=== PATIENT | male | born 1960 | race Caucasian/White ===

== ENCOUNTER 2019-02-11 01:18 | Outpatient (CLI) | payer BC, SELFPAY ==
[2019-02-11 08:21] LABS: ALT 25 U/L (12-78); AST 28 U/L (15-37); Albumin 3.4 g/dL (3.4-5.0); Alkaline Phosphatase 65 U/L (46-116); BUN 18 mg/dL (7-18); Bilirubin, Total 0.5 mg/dL (0.2-1.0); CREATININE 1.25 mg/dL (0.70-1.30); Calcium 8.2 mg/dL (8.5-10.1); Chloride 107 mmol/L (98-107); Estimated GFR 58.92 (mL/min/1.73m2); Glucose 90 mg/dL (70-100); Potassium 4.2 mmol/L (3.5-5.1); Sodium 141 mmol/L (136-145); Total Protein 7.5 g/dL (6.4-8.2)
[2019-02-11 08:32] LABS: Cholesterol 186 mg/dL (50-200); HDL Cholesterol 54 mg/dL (40-60); LDL CHOLESTEROL 121 mg/dL (<100); Triglyceride 29 mg/dL (30-150)
== END 2019-02-11 01:38 ==
PROVIDERS: PCP Family Medicine; Visit Provider Family Medicine
DX: Z13.220 Encounter for screening for lipoid disorders (principal)
CPT/HCPCS: 36415; 80053; 80061; 83721

== ENCOUNTER 2019-03-04 10:18 | Outpatient (CLI) | payer BC, SELFPAY ==
--- NOTE | 2019-03-04 09:11 | DI.RAD_ITS ---
SYMPTOMS/DIAGNOSIS: ROTATOR CUFF ARTHROPATHY OF LEFT SHOULDER, M12.812, INTERMITTENT PAIN FOR A LONG TIME, MOST WITH INTERNAL ROTATION LEFT SHOULDER: Five views were obtained. There is marked narrowing of the cartilaginous joint space of the glenohumeral joint with prominent inferior osteophytes of the humeral head and the glenoid. Superior osteophytes are also present. Mild subchondral sclerotic and cystic changes noted. Mild hypertrophic degenerative changes of the AC joint noted as well. CONCLUSION: Severe DJD, glenohumeral joint as described.
== END 2019-03-04 10:38 ==
PROVIDERS: PCP Family Medicine; Visit Provider Family Medicine
DX: M25.512 Pain in left shoulder (principal); M19.012 Primary osteoarthritis, left shoulder
CPT/HCPCS: 73030

== ENCOUNTER 2019-05-05 00:48 | Outpatient (CLI) | payer BC, SELFPAY ==
--- NOTE | 2019-05-05 07:07 | DI.RAD_ITS ---
SYMPTOM/DIAGNOSIS: LT SHOULDER INJECTION, ARTHRITIS, PRIMARY OA LT SHOULDER, M19.012 LEFT SHOULDER INJECTION: Fluoroscopy Time: 11.2 seconds Fluoroscopy was utilized by Dr. Burch during the performance of a left shoulder injection. Please refer to the procedure report for complete details.
--- NOTE | 2019-05-05 10:17 | W.PROCNOTE ---
Date of service: 05/05/19 Time of Service: 10:17 Procedure Note Date of procedure: 05/05/19 Procedure: Left Shoulder Injection Surgeon/Proceduralist/Physician: Deep Burch Procedure Diagnosis: Left Shoulder Osteoarthritis Procedure Indications: Geo has had persistent pain of the LEFT shoulder. Noninvasive measures have been tried. To serve as both diagnostic and therapeutic, an injection under fluoroscopy was recommended. I had discussed the risks of the procedure and the patient elected to proceed. Procedure Description: Geo was greeted in the flouroscopy room. The correct side was identified and the consent was reviewed with the patient and signed. The patient was then placed in the supine position on the fluoroscopy table. The LEFT shoulder was then prepped with Chloraprep. The anterior injection starting point was identiifed by bony landmarks and fluoroscopy. The skin and soft tissue in the tract of the injection was anesthetized with 1% Lidocaine. A spinal needle was then inserted deep into the shoulder joint at the level of the recess between the glenoid and superior humeral head. A small amount of Omnipaque solution was injected to confirm intraarticular placement. Once confirmed, the shoulder was injected with 4cc of 0.5% Bupivicaine and 80mg of Depo-Medrol. A bandaid was placed on the injection site. The patient tolerated the procedure well and noted improvement in pre-injection pain.
[2019-05-05] MEDS: Omnipaque 300 MG/ML 10 ML BTL IJ (10:51)
[2019-05-05] MEDS: Bupivacaine 0.5% Pres-Free 10 ML VIAL IJ (10:52)
[2019-05-05] MEDS: methylPREDNISolone ACETATE 80 MG/ML VIAL IM (10:52)
== END 2019-05-05 01:08 ==
PROVIDERS: PCP Family Medicine; Visit Provider Student in an Organized Health Care Education/Training Program
DX: M19.012 Primary osteoarthritis, left shoulder (principal); M25.512 Pain in left shoulder
CPT/HCPCS: 20610; 77002; J1040

== ENCOUNTER 2019-09-09 10:25 | Outpatient (REF) | payer BC, SELFPAY ==
[2019-09-09 18:43] LABS: Anion Gap 9.5 mmol/L (3-11); BUN 17 mg/dL (7-18); CO2 26.5 mmol/L (21.0-32.0); Calcium 8.5 mg/dL (8.5-10.1); Chloride 105 mmol/L (98-107); Estimated GFR 56.12 (mL/min/1.73m2); Glucose 100 mg/dL (70-100); Potassium 4.5 mmol/L (3.5-5.1); Sodium 141 mmol/L (136-145)
== END 2019-09-09 10:45 ==
LOC: LBN 10:25
PROVIDERS: PCP Family Medicine; Visit Provider Family Medicine
DX: N18.9 Chronic kidney disease, unspecified (principal)
CPT/HCPCS: 80048

== ENCOUNTER 2020-05-04 08:39 | Day surgery (SDC) | payer BC, SELFPAY ==
[2020-05-04 09:17] VITALS: BP 111/72; PULSE 66; RESP 16; TEMP 36.2; O2SAT 97
[2020-05-04] MEDS: Lactated Ringers 1,000 ML 80 ML IV (09:41)
--- NOTE | 2020-05-04 10:22 | W.PM.DSUDISC ---
Discharge Plan Disposition Patient Disposition: HOME Condition: Good Discharge Details Reason For Visit: Colonoscopy Attending Provider: Lashonda Pollard Primary Care Provider: Jorge Dorado Home Meds and New Rx's Prescriptions: Continued ibuprofen [Advil] 200 mg tablet 200 mg PO BID-TID PRNRF: 0 calcium carbonate [Tums] 300 mg (750 mg) tablet,chewable 300 mg PO BID RF: 0 naproxen 250 mg Tablet 250 mg PO PRN PRNRF: 0 Discontinued polyethylene glycol 3350 17 gram/dose powder 238 g PO ONCE Qty: 238 RF: 0 bisacodyl [Dulcolax (bisacodyl)] 5 mg tablet,delayed release (DR/EC) 5 mg PO ONCE Qty: 4 RF: 0 Discharge Instructions Additional Instructions: Findings: Your colonoscopy showed moderate diverticular change. Make sure to take in 30 grams of fiber daily. Follow up: Plan for routine screening colonoscopy in 10 years or sooner if symptoms arise. Please call if you develop: fevers >101.5 Nausea or Vomiting Abdominal pain that is not transient DAY SURGERY UNIT POST COLONOSCOPY INSTRUCTIONS 1. Because there will be medication in your system for the next 24 hours, you may feel a little sleepy. Your coordination will be affected. Therefore: a. Do not drive or operate dangerous equipment for 24 hours. b. Do not drink alcohol beverages for 24 hours (not even beer). c. Plan to go home and rest for the day. 2. Generally there are no restrictions on your activity after a day or so has gone by, but you may feel a bit fatigued for a few days. 3 After you arrive home you may have a light meal and return to a normal diet as you can tolerate it without feeling sick to your stomach. 4. After surgery, you may feel pain or discomfort. This should be only transient, but if it persists please contact your doctor. 5. If there are any questions regarding the findings of your procedure, please feel free to contact your doctor. 6. If you are unable to contact your doctor with a problem, contact the hospital at [phone]. 7. Continue all your regular medications unless directed otherwise. I understand the above instructions and have no questions. Signature of Patient or Responsible Adult Escort Date/Time Name of Responsible Adult Escort Signature of Nurse Date/Time Activity:: Activity as Tolerated Diet:: As Tolerated Discharge Orders Discharge Orders: Discharge Order (Routine); Ordered 05/04/20 Ordered By: Lashonda Pollard DS: Diagnosis Discharge Diagnosis (1) Diverticulosis: Status: Acute
--- NOTE | 2020-05-04 11:02 | W.COLOREPORT ---
Date of service: 05/04/20 Time of Service: 11:02 Colonoscopy Report Date of procedure: 05/04/20 Pre-op diagnosis general: Screening Post-op diagnosis procedure note: other (Diverticulosis) Procedure: Colonoscopy Surgeon: Lashonda Pollard Anesthesia proc note operative: MAC Indications: This patient presents for his first screening colonoscopy. He has no symptoms or FH colon cancer. Procedure Description: The patient was placed in the left Marmolejo position. Propofol was titrated to sedation. Digital rectal examination revealed no abnormalities. The scope was advanced to the cecum without difficulty. The ileocecal valve and appendiceal orifice were clearly identified. The prep was good. The scope was slowly withdrawn over the course of greater than 6 minutes with no abnormalities seen in the ascending, transverse, descending, sigmoid colon or rectum including on retroflexed view with the exception of moderated sigmoid diverticulosis. The patient tolerated the procedure well and was stable to recovery. Plan for routine screening colonoscopy in 10 years or sooner if symptoms indicate.
[2020-05-04 12:15] VITALS: BP 124/84; PULSE 59; RESP 18; TEMP 36; O2SAT 97
== END 2020-05-04 11:55 | disposition home or self-care (01) ==
PROVIDERS: PCP Family Medicine; Visit Provider Surgery
PROC: 0DJD8ZZ Inspection of Lower Intestinal Tract, Via Natural or Artificial Opening Endoscopic (ICD-10-PCS; CPT 45378; principal; 2020-05-04 11:15)
DX: Z12.11 Encounter for screening for malignant neoplasm of colon (principal); K57.30 Diverticulosis of large intestine without perforation or abscess without bleeding
CPT/HCPCS: 45378; J2001

== ENCOUNTER 2021-02-11 09:18 | Emergency (ER) | payer OTHER, BC, SELFPAY ==
[2021-02-11] VITALS (27 sets, daily range): BP systolic 111–125; BP diastolic 64–78; PULSE 71–91; RESP 15–22; TEMP 36.9; O2SAT 95–99
--- NOTE | 2021-02-11 09:23 | ED.GENADUL_ITS ---
Discharge Plan Disposition Patient Disposition: [facility] Condition: Stable Discharge Details Clinical Impression: Cellulitis of left anterior lower leg, Anemia, Thrombocytopenia, Spider bite wound Primary Care Provider: Jorge Dorado ED Provider: Maggy Moore Home Meds and New Rx's Prescriptions: No Action ibuprofen [Advil] 200 mg tablet 200 mg PO BID-TID PRNRF: 0 calcium carbonate [Tums] 300 mg (750 mg) tablet,chewable 300 mg PO BID PRNRF: 0 acetaminophen 325 mg Tablet 650 mg PO PRN PRNRF: 0 sulfamethoxazole-trimethoprim [Bactrim DS] 800-160 mg Tablet 1 tab PO BID RF: 0 naproxen 250 mg Tablet 250 mg PO PRN PRNRF: 0 Discharge Data Discharge Date/Time-TO BE ENTERED AT DEPARTURE: 02/11/21 14:06 Medical Decision Making 60-year-old male presents to the ER chief complaint of left lower extremity cellulitis which has been present since January 31. He has been taking amoxicillin prior to being seen on the 03 of February at [facility] and was placed on cephalexin 500 mg twice daily. On February 07 he was then placed on Bactrim which she took for approximately 4 days. Today presented to [facility] with worsening wound, with skin sloughing, decreased blood pressure of 96/68 heart rate in the 90s. He does report fever and chills. He has had some interm ittent vomiting and nausea and myalgias. Upon arrival he is alert and oriented vital signs are stable. He does have a large open sloughing wound with yellow purulent drainage. He does have sensation intact to his distal lower extremity he has a past medical history of CO hyperlipidemia, GERD, chronic kidney disease. At this time sepsis work-up ordered, including blood cultures x2, CT of left lower extremity ordered to rule out abscess and/or gas. Lactate is 2.4. Differential diagnosis includes but not limited to purulent cellulitis, spider bite, necrotizing fascitis 1009: Spoke with which she describes initial puncture then became swollen 48-72 hours later approximately 2inches x 2 inches and then turned black and purple. 2222: Call made to [facility] transfer center regarding possible transfer. 1036: [facility] at [facility], will call [facility]. 1054: [facility] transfer center called. CMP shows sodium of 130, potassium 4.4, chloride 100, anion gap 11.9 BUN 56, creatinine 2.4 GFR of 27. Calcium is 8.1, AST 123 ALT 86, alk phos 292 C- reactive protein greater than 25.00, albumin one-point sed rate 73 PT 11.8, INR 1.2 APTT 33.5. 1056: Informed by lab preliminary results of CBC white blood cell count is 46.36 hemoglobin is 8.3 and platelets are 88 with a positive left shift Patient denies any recent alcohol use. He denies any abdominal pain upon arrival. 1104: Spoke with Dr. Tomlin radiologist regarding CT results. He does describes no foreign body lateral subcu edema greater than the medial subcu tissues, no fluid collection no subcutaneous gas no bony changes or bony abnormalities. 1110: Spoke with Dr. Bergman hospitalist with [facility] regarding patient case and details. Discussed CT results lab values with her. I also was able to email her patient images of the wound. She does accept patient for admission at this time. She did not give any further recommendations for further antibiotics or other treatment at this time. Pending bed placement. Discussed plan of care with patient he verbalizes understanding he is requesting I call his . 1153: Spoke with patient's Tricia regarding plan of care and plan to transfer to [facility] she verbalizes understanding and is in agreement with this plan. At this time I am concerned for possible hemolytic anemia versus DIC from a possible spider bite due to patient's abnormal labs. Also on the differential is SIRS criteria and bacterial cellulitis. Patient was hemodynamically stable at the time of this pending bed assignment and transfer to [facility]. HPI General Mode of arrival: ambulatory . Date/Time Provider Initiated Documentation: 02/11/21 09:21 . Limitations to Documentation: no limitations . Information obtained by: patient and old records reviewed (Records faxed from [facility]) . HPI Narrative: 60-year-old male presents to the ER chief complaint of left lower extremity cellulitis which has been present since January 31. He has been taking amoxicillin prior to being seen on the 03 of February at [facility] and was placed on cephalexin 500 mg twice daily. On February 07 he was then placed on Bactrim which she took for approximately 4 days. Today presented to [facility] with worsening wound, with skin sloughing, decreased blood pressure of 96/68 heart rate in the 90s. He does report fever and chills. He has had some intermittent vomiting and nausea and myalgias. Upon arrival he is alert and oriented vital signs are stable. He does have a large open sloug rickie wound with yellow purulent drainage. He does have sensation intact to his distal lower extremity he has a past medical history of CO hyperlipidemia, GERD, chronic kidney disease. Related Data Home Medications Medication Instructions Recorded Confirmed calcium carbonate 300 mg (750 mg) 300 mg PO BID PRN tab 01/28/19 02/11/21 chewable tablet ibuprofen 200 mg tablet 200 mg PO BID-TID PRN tab 01/28/19 02/11/21 naproxen 250 mg PO PRN PRN 05/04/20 02/11/21 acetaminophen 650 mg PO PRN PRN 02/11/21 02/11/21 sulfamethoxazole-trimethoprim 1 tab PO BID 02/11/21 02/11/21 [Bactrim DS] Allergies Allergy/AdvReac Type Severity Reaction Status Date / Time No Known Allergies Allergy Verified 02/11/21 09:29 Review of Systems Narrative: Constitutional: Negative for weight loss, alert and oriented, well groomed, normal body habitus, appears comfortable. Positive fever, chills and myalgias. HEENT: Denies trauma, blurry vision, nasal discharge, sore throat, trouble swallowing. Positive head Chest: Denies chest pain, palpitations, irregular rhythm, hypertension. Respiratory: Denies Shortness of breath, cough, hemoptysis. GI: Denies abdominal pain, diarrhea, constipation. Positive intermittent nausea vomiting : Denies dysuria, hematuria, flank pain, rectal bleeding. Musculoskeletal: Open sloughing wound noted to the left anterior sinclair which is partially circumferential began January 31 which is 11 days. Some redness Neuro: Denies dizziness, blurry vision, weakness, syncope, or facial numbness. Hematologic: Denies easy bruising, intolerance to heat or cold, hair loss. [facility] Medical History (Updated 02/11/21 @ 12:29 by Maggy Moore) Acute CO, inferior wall Per pt. , was discovered by Dr. Lacey a long time ago (10+ years), and had an echo which looked like he had damage to the inferior wall. Per pt. he has had no issues with his heart Chronic kidney disease Slightly elevated creatnine Surgical History History of esophagogastroduodenoscopy (EGD) Jackson teeth extracted Family History Brother Alcohol abuse Substance abuse Brother Alcohol abuse Substance abuse Heart disease CO Sister Alcohol abuse Substance abuse Heart disease Sister Alcohol abuse Substance abuse Father Heart disease Hyperlipidemia Hypertension Mother Dementia Parkinson disease Social History Smoking/Tobacco Use Status: Never Smoking risk assessment performed?: Yes Alcohol Intake: former Year quit: 1982 Drug use: Never Substance use type: does not use Household members: spouse Housing: house Number of Children: 2 number of grandchildren: 3 Communication Needs: None Education Level: high school Do you need help understanding health information?: Never current occupation: [employer], [employer] Sexually active: Yes Do you think of yourself as: straight/heterosexual Current gender identity: male What is your relationship status?: Panel score (0-1 are the most socially isolated patients): 1 What type of physical activity do you participate in: other Details: street hockey, golf, bowling Seatbelt use: always Helmet use: Yes Drive intox or ride w/intox commercial driver's license driver: No Working smoke detector in home: Yes Fire extinguisher in home: No Carbon monox detector in home: Yes Firearms in home: Yes Firearms unloaded and locked: No (not locked) Do you feel safe at home: Yes Do you feel safe in your relationship?: Yes Victim of physical abuse: No Victim of emotional abuse: No Victim of sexual abuse: No Exam Narrative Exam Narrative: Constitutional: Alert and oriented x3. Appears stated age. Normal body habitus. Head: Normocephalic, no trauma. Eyes: Pupils PERRLA, Red reflex noted, EOM's intact. Eyelids symmetrical without lesions, discharge, or swelling. ENT: Bilateral TM's WNL, External ear normal to inspection, no mastoid TTP, swelling, or erythema, Nasal turbinates WNL, no nasal discharge. Normal dentition, Posterior pharynx WNL, no exudate. Chest: RRR, Normal S1, S2, distal pulses intact. Resp: Lungs clear to auscultation bilaterally, no wheezes, rales, or rhonchi. Musculoskeletal: Limping gait, 5/5 strength to all four extremities. Open weeping wound noted to left lower extremity please see diagram below. Surrounding dark tissue irregular edges. Erythema noted to the borders. Weeping yellow drainage. Skin: See extremity diagram below capillary refill less than 2 sec. Neurologic: Cranial nerves II-XII intact. Alert and oriented x 3. DTR's intact. Hematologic/Lymphatic: No ecchymosis, no lymphadenopathy. Extrem Upper/lower leg/hip images: 1. Large open draining wound, there is some purplish tissue surrounding the wound, large ulceration.
[2021-02-11 09:49] LABS: Abs Immature Grans 17.86 10^3/uL (0.0-0.06); HCT 24.4 % (40.0-50.0); HGB 8.3 g/dL (13.5-17.5); MCH 33.3 pg (27.0-33.0); MPV 13.4 fL (8.0-11.0); Nucleated RBC 0 %; RBC 2.49 10^6/uL (4.36-5.78); RDW 17.8 % (11.8-14.1); RDW-SD 64.4 fL
[2021-02-11 09:50] LABS: Lactate 2.4 mmol/L (0.6-1.4)
[2021-02-11 09:54] LABS: ESR 73 mm//hr (0-20)
[2021-02-11] MEDS: Normal Saline 1,000 ML 1000 ML IV (10:07)
[2021-02-11 10:11] LABS: ALT 86 U/L (16-63); AST 123 U/L (15-37); Albumin 1.9 g/dL (3.4-5.0); Alkaline Phosphatase 292 U/L (46-116); Anion Gap 11.9 mmol/L (3-11); BUN 56 mg/dL (7-18); Bilirubin, Total 1.6 mg/dL (0.2-1.0); CO2 18.1 mmol/L (21.0-32.0); CREATININE 2.4 mg/dL (0.70-1.30); Calcium 8.1 mg/dL (8.5-10.1); Chloride 100 mmol/L (98-107); Estimated GFR 27.57 (mL/min/1.73m2); Glucose 105 mg/dL (74-106); Magnesium 2.2 mg/dL (1.8-2.4); Potassium 4.4 mmol/L (3.5-5.1); Sodium 130 mmol/L (136-145); Total Protein 6.8 g/dL (6.4-8.2)
[2021-02-11] MEDS: PIPERACILLIN/TAZO 3.375 GM in Normal Saline 50 ML IVPB (10:25)
--- NOTE | 2021-02-11 10:40 | DI.CT_ITS ---
EXAM: CT LOWER EXTREMITY LT WO CLINICAL HISTORY: Cellulitis, R/O gas. TECHNIQUE: Imaging Protocol: Axial computed tomography images with coronal and sagittal reformatted images were created and reviewed. CONTRAST MATERIAL: Intravenous: None administered due to renal status. COMPARISON: No exams were available for comparison FINDINGS: There are no fractures of the tibia and fibula. No evidence of tibial plateau fracture. No obvious prominent knee joint effusion nor Mendoza cyst in the popliteal fossa. There is no evidence of poplite al artery aneurysm. There is some calcification noted in the tibioperoneal trunk. There is a diffuse cellulitis/skin thickening pattern in the calf, and there is subcutaneous edema wh ich is more evident over the lateral aspect than the medial aspect of the calf. Edema extends distal ly beyond the field of view which is down to the ankle here. There is no distinct focal foreign body evident. There is no distinct drainable fluid collection evident. There is no gas in the soft tiss ues. The most prominent subcutaneous edema is laterally. There is no evidence of osteomyelitis of t he adjacent fibular head. There is no obvious tear of the lateral collateral ligament complex struct ures. IMPRESSION: Diffuse cellulitis pattern as described above. There is diffuse skin thickening. Most prominent sub cutaneous fat stranding is located laterally. There is no obvious drainable fluid collection. No ob vious intramuscular findings. No gas in the soft tissues noted. No evidence of osteomyelitis. There is no obvious focal foreign body evident. Findings discussed by phone with the emergency room provider following completion of the study 2020. RADIATION DOSE DELIVERED: total DLP DATA REPOSITORY: All CT scans at this facility are submitted to the National Radiology Data Registry (NRDR) Dose Index Registry (DIR) with the [employer] (ACR). RADIATION OPTIMIZATION: All CT scans at this facility use at least one of these dose optimization te chniques: automated exposure control; mA and/or kV adjustment per patient size (includes targeted exa ms where dose is matched to clinical indication); or iterative reconstruction.
[2021-02-11 10:45] LABS: C-Reactive Protein > 25.00 mg/dL (0.0-0.3)
[2021-02-11 10:59] LABS: WBC 46.36 10^3/uL (4.4-10.8)
[2021-02-11 11:00] LABS: Platelet Count 88 10^3/uL (130-400)
[2021-02-11 11:01] LABS: Absolute Basophil Count 0.46 10^3/uL (0.0-0.2); Absolute Lymphocyte Count 3.25 10^3/uL (1.2-3.4); Absolute Monocyte Count 2.32 10^3/uL (0.1-0.8); Bands % 10; Metamyelocytes % 12; Myelocytes % 8
[2021-02-11 11:02] LABS: Other Cells % 1
[2021-02-11 11:03] LABS: Anisocytosis 2+; Diff Comment Manual Differential; Macrocytosis 1+; Polychromasia Present
[2021-02-11] MEDS: VANCOMYCIN/WATER (PEG) 1 GM/200 ML BAG IVPB (11:29)
[2021-02-11 11:41] LABS: INR 1.2 (0.9-1.1); PTT Activated 33.5 sec (21.0-27.5); Prothrombin Time 11.8 sec (9.3-11.0)
--- NOTE | 2021-02-11 12:19 | CMPROGNOTE_ITS ---
- If Service Date Differs Date of service: 02/11/21 Time of Service: 12:19 Care Management Progress Note Geo is seen in the ED for cellulitis of his left lower leg. At the request of ED provider, FINESSE meets with Geo to discuss the status of his health insurance. Geo reports he retired October 26, 2020, at which time the [facility] insurance plan he had through his employer terminated. He reports he applied for insurance through [employer] but has not heard back from them. He also shares that he gets a 1095-B form from the [place] every year stating that he has insurance, but does not have an insurance card from the [place] and is unsure what kind of insurance he might have through them. FINESSE obtains a verbal consent to speak with his , Tricia, as he reports she applied for insurance on his behalf through [employer] and would know more about the status of the insurance. Geo also provides his 's cell phone number ([phone]). FINESSE speaks with Tricia who states they received a letter from [employer] saying Geo's insurance was active, but have not received an insurance card or any other information. FINESSE then contacts [facility] at [employer] to enlist his assistance with the insurance matter.
[2021-02-11 12:50] LABS: Bilirubin Negative (Negative); Blood Negative (Negative); Clarity Clear (Clear); Glucose Negative (Negative); Ketones Negative (Negative); Leukocyte Esterase Negative (Negative); Nitrite Negative (Negative); Urobilinogen 0.2 EU/dL (Up TO 0.2)
[2021-02-11 16:11] LABS: COVID-19 PCR Negative (Negative)
== END 2021-02-11 14:06 ==
PROVIDERS: Emergency Provider Registered Nurse Emergency; PCP Family Medicine
DX: I96 Gangrene, not elsewhere classified (principal); T63.391A Toxic effect of venom of other spider, accidental (unintentional), initial encounter; D69.59 Other secondary thrombocytopenia; D64.9 Anemia, unspecified; I95.89 Other hypotension; Z03.818 Encounter for observation for suspected exposure to other biological agents ruled out
CPT/HCPCS: 36415; 80053; 85652; 86850; 86900; 86901; 87040; 87635; 96361; 96365; 96366; 96367; 99285; 73700; 81003; 83605; 83735; 85025; 85610; 85730; 86140; J2543